=== PATIENT | male | born 1945 | race African-American/Black ===

== ENCOUNTER 2016-12-09 21:30 | Inpatient (IN) | payer MEDICARE, MEDICAID ==
[~2016-12-09] VITALS: Ht 177.8 cm; Wt 77.1 kg
[~2016-12-09 21:30] MED LIST: ALBU6.7H INH; ALLO100T PO; AMLO10TA80 PO; ASPI-1159 PO; LISI-604 PO; MOME13HF2 INH; SIMV10TA6 PO
[2016-12-09] MEDS ORDERED: METHYLPREDNISOLONE SOD SUCC 40 MG/ML VIAL IV ONE (21:45)
[2016-12-09 22:27] LABS: BG BASE EXCESS -5.2 mmol/L (-2.0-2.0); BG BILEVEL POS AIRWAY PRESSURE 15/5; BG CARBOXYHEMOGLOBIN 1.1 % (0.5-1.5); BG DEOXYHEMOGLOBIN 1.1 % (0.0-5.0); BG FRACTION INSPIRED OXYGEN 40; BG HCO3 ACT 20.7 mmol/L (22.0-26.0); BG METHEMOGLOBIN 0.1 % (0.0-1.5); BG OXYGEN SATURATION 98.9 % (92.0-98.5); BG OXYHEMOGLOBIN 97.7 % (94.0-97.0); BG PCO2 41.2 mmHg (35.0-45.0); BG PH 7.318 (7.350-7.450); BG PO2 162.6 mmHg (75.0-100.0); BG SAMPLE SITE RIGHT RADIAL; BG TOTAL HEMOGLOBIN 14.3 g/dL (12.0-18.0); BG VENT MODE MASK - BIPAP; BG VENT RATE 16 set
[2016-12-09 22:55] LABS: BASOPHILS % 0.4 % (0.0-2.0); EOSINOPHILS % 7.6 % (0.0-5.0); HEMOGLOBIN. 13.2 g/dL (14.0-18.0); LYMPHOCYTES % 19.2 % (20.0-50.0); MEAN CORPUSCULAR HEMOGLOBIN 32.5 pg (28.0-32.0); MEAN CORPUSCULAR VOLUME 96.6 fL (80.0-94.0); MEAN PLATELET VOLUME 8.2 fl (7.4-10.4); MONOCYTES % 11.8 % (2.0-8.0); PLATELET 229 x1000/uL (130-400); RED BLOOD CELL COUNT 4.04 mill/uL (4.7-6.1); RED CELL DISTRIBUTION WIDTH 12.1 % (11.6-14.6)
[2016-12-09 23:08] LABS: CARBON DIOXIDE 25 mEq/L (21-32); CHLORIDE 97 mEq/L (98-107)
[2016-12-10] MEDS ORDERED: CLONIDINE 0.1MG TABLET PO PRN (01:15)
[2016-12-10] MEDS ORDERED: IPRATROPIUM/ALBUTEROL 0.5-3(2.5)MG/3ML NEB INH PRN (01:15)
[2016-12-10] MEDS ORDERED: ACETAMINOPHEN 325MG TABLET PO PRN (01:15)
[2016-12-10] MEDS ORDERED: MAGNESIUM/ALUMINUM HYDROXIDE/SIMETHICONE 30ML UDC PO PRN (01:15)
[2016-12-10] MEDS ORDERED: DIPHENHYDRAMINE 50MG/ML VIAL IV PRN (01:15)
[2016-12-10] MEDS ORDERED: NA PHOS,M-B/NA PHOS,DI-BA ENEMA 118ML PR PRN (01:15)
[2016-12-10] MEDS ORDERED: ONDANSETRON HCL 4MG/2ML VIAL IV PRN (01:15)
[2016-12-10] MEDS ORDERED: LORAZEPAM 0.5MG TABLET PO PRN (01:15)
[2016-12-10] MEDS ORDERED: HYDROCODONE/ACETAMINOPHEN 5/325MG TABLET PO PRN (01:15)
[2016-12-10] MEDS ORDERED: HYDROMORPHONE HCL/PF 2MG/ML CPJ IV PRN (01:15)
[2016-12-10 01:21] LABS: CLARITY URINE CLEAR (CLEAR); COLOR URINE YELLOW (YELLOW); KETONES URINE 1+ (NEGATIVE); LEUKOCYTE ESTERASE URINE NEGATIVE (NEGATIVE); NITRITE URINE NEGATIVE (NEGATIVE); OCCULT BLOOD URINE TRACE (NEGATIVE); PROTEIN URINE 3+ (NEGATIVE); SPECIFIC GRAVITY URINE 1.017 (1.005-1.030); UROBILINOGEN URINE 0.2 E.U./dL (0.2-1.0)
[2016-12-10 01:35] LABS: *AMPHETAMINES SCREEN URINE NEGATIVE (NEGATIVE); *BARBITURATES SCREEN URINE NEGATIVE (NEGATIVE); *BENZODIAZEPINES SCREEN URINE PRESUMTIVE POSITIVE (NEGATIVE); *COCAINE SCREEN URINE NEGATIVE (NEGATIVE); CANNABINOID URINE SCREEN NEGATIVE (NEGATIVE); METHADONE URINE SCREEN NEGATIVE (NEGATIVE); OPIATES URINE SCREEN NEGATIVE (NEGATIVE); PHENCYCLIDINE URINE SCREEN NEGATIVE (NEGATIVE)
[2016-12-10] MEDS ORDERED: HYDROCODONE/ACETAMINOPHEN 5/325MG TABLET PO ONE (01:45)
[2016-12-10 02:53] LABS: CARBON DIOXIDE 24 mEq/L (21-32); CHLORIDE 97 mEq/L (98-107)
[2016-12-10] MEDS ORDERED: DEXTROSE 50% WATER 50ML SYRINGE IV PRN (04:15)
[2016-12-10] MEDS: METHYLPREDNISOLONE SOD SUCC 125 MG/2 ML VIAL IV SCH ×4 (05:54→23:31)
[2016-12-10] MEDS ORDERED: LEVOFLOXACIN 500MG PREMIX 100 ML IV SCH (06:00)
[2016-12-10] MEDS: BLOOD SUGAR DIAGNOSTIC STRIP TEST SCH ×4 (06:05→20:35)
[2016-12-10] MEDS: INSULIN LISPRO 100 UNITS/ML SUBCUT SCH ×4 (07:20→21:07)
[2016-12-10] MEDS: DOCUSATE SODIUM 100MG CAPSULE PO PRN (08:07)
[2016-12-10] MEDS: ENOXAPARIN 40MG/0.4ML SYR SUBCUT SCH (08:08)
[2016-12-10] MEDS ORDERED: ASPIRIN 81MG EC TABLET PO SCH (09:00)
[2016-12-10] MEDS ORDERED: REGADENOSON 0.4 MG/5 ML IV ONE (09:45)
[2016-12-10 12:24] LABS: TROPONIN I 0.42 ng/mL (0.00-0.04)
[2016-12-10] MEDS ORDERED: METO-385 PO (16:22)
[2016-12-10] MEDS ORDERED: ANORO ELLIPTA INH (16:23)
[2016-12-10] MEDS ORDERED: FAMO40TA7 PO (16:24)
[2016-12-10] MEDS ORDERED: IPRA0.2S51 NEB (16:32)
[2016-12-10] MEDS ORDERED: NON-FORMULARY INH (16:37)
[2016-12-10] MEDS ORDERED: METOPROLOL SUCCINATE PO SCH (16:45)
[2016-12-10] MEDS ORDERED: [UNRECOGNIZED DRUG - OTHER] INH PRN (16:45)
[2016-12-10 16:53] LABS: CREATINE KINASE MB FRACTION 10.8 ng/mL (0.5-3.6); TROPONIN I 0.39 ng/mL (0.00-0.04)
[2016-12-10] MEDS: IPRATROPIUM/ALBUTEROL 0.5-3(2.5)MG/3ML NEB HHN SCH ×2 (17:05→20:14)
[2016-12-10] MEDS: AMLODIPINE 10MG TABLET PO SCH (17:19)
[2016-12-10] MEDS: LISINOPRIL 20MG TABLET PO SCH (17:19)
[2016-12-10] MEDS ORDERED: MEDICATION NOT ON FORMULARY EA (Simvastatin 20 MG) PO SCH (21:00)
[2016-12-10] MEDS ORDERED: MEDICATION NOT ON FORMULARY EA (Famotidine 1 TAB) PO SCH (21:00)
[2016-12-10] MEDS: ATORVASTATIN CALCIUM 10MG TABLET PO SCH (21:09)
[2016-12-10] MEDS: GUAIFENESIN 200MG/10ML SUGAR FREE UDC PO PRN (21:09)
[2016-12-10] MEDS: METOPROLOL TARTRATE 25MG TABLET PO SCH (21:10)
[2016-12-10] MEDS: FAMOTIDINE 20MG TABLET PO SCH (21:10)
[2016-12-11] MEDS: IPRATROPIUM/ALBUTEROL 0.5-3(2.5)MG/3ML NEB HHN SCH ×6 (00:11→21:16)
[2016-12-11 00:36] LABS: CREATINE KINASE MB FRACTION 7.3 ng/mL (0.5-3.6)
[2016-12-11] MEDS: GUAIFENESIN 200MG/10ML SUGAR FREE UDC PO PRN (04:41)
[2016-12-11] MEDS: METHYLPREDNISOLONE SOD SUCC 125 MG/2 ML VIAL IV SCH (05:19)
[2016-12-11] MEDS: LEVOFLOXACIN 500MG PREMIX 100 ML IV SCH (05:23)
[2016-12-11] MEDS: BLOOD SUGAR DIAGNOSTIC STRIP TEST SCH ×4 (05:46→20:11)
[2016-12-11 06:40] LABS: HEMATOCRIT. 41.2 % (42.0-52.0); HEMOGLOBIN. 13.7 g/dL (14.0-18.0); MEAN CORPUSCULAR HEMOGLOBIN 32.1 pg (28.0-32.0); MEAN CORPUSCULAR VOLUME 96.5 fL (80.0-94.0); MEAN PLATELET VOLUME 8.2 fl (7.4-10.4); PLATELET 258 x1000/uL (130-400); RED BLOOD CELL COUNT 4.27 mill/uL (4.7-6.1); RED CELL DISTRIBUTION WIDTH 12.2 % (11.6-14.6)
[2016-12-11 07:08] LABS: CARBON DIOXIDE 23 mEq/L (21-32); CHLORIDE 98 mEq/L (98-107); CREATINE KINASE 152 IU/L (39-308); CREATINE KINASE MB FRACTION 6.3 ng/mL (0.5-3.6); HDL CHOLESTEROL 71 mg/dL (40-59); LDL CHOLESTEROL 60 mg/dL (5-100); T4 FREE 0.97 ng/dL (0.76-1.46)
[2016-12-11] MEDS: INSULIN LISPRO 100 UNITS/ML SUBCUT SCH ×4 (07:20→20:40)
[2016-12-11] MEDS ORDERED: REGADENOSON 0.4 MG/5 ML IV ONE (08:50)
[2016-12-11] MEDS ORDERED: ASPIRIN 81MG TABLET PO SCH (09:00)
[2016-12-11] MEDS ORDERED: ANORO ELLIPTA 62.5 MCG INH SCH (09:00)
[2016-12-11] MEDS: ALLOPURINOL 100 MG TABLET PO SCH (09:37)
[2016-12-11] MEDS: ENOXAPARIN 40MG/0.4ML SYR SUBCUT SCH (09:37)
[2016-12-11] MEDS: AMLODIPINE 10MG TABLET PO SCH (09:37)
[2016-12-11] MEDS: LISINOPRIL 20MG TABLET PO SCH (09:37)
[2016-12-11] MEDS: METOPROLOL TARTRATE 25MG TABLET PO SCH ×2 (09:37→20:13)
[2016-12-11 10:58] LABS: PLATELET ESTIMATE NORMAL
[2016-12-11] MEDS: METHYLPREDNISOLONE SOD SUCC 40 MG/ML VIAL IV SCH ×2 (13:46→23:26)
[2016-12-11] MEDS: ATORVASTATIN CALCIUM 10MG TABLET PO SCH (20:13)
[2016-12-11] MEDS: FAMOTIDINE 20MG TABLET PO SCH (20:13)
[2016-12-12] MEDS: IPRATROPIUM/ALBUTEROL 0.5-3(2.5)MG/3ML NEB HHN SCH ×4 (00:53→12:20)
[2016-12-12] MEDS: GUAIFENESIN 200MG/10ML SUGAR FREE UDC PO PRN (04:55)
[2016-12-12] MEDS: METHYLPREDNISOLONE SOD SUCC 40 MG/ML VIAL IV SCH (05:08)
[2016-12-12] MEDS: LEVOFLOXACIN 500MG PREMIX 100 ML IV SCH (05:09)
[2016-12-12 06:39] LABS: HEMOGLOBIN. 13.6 g/dL (14.0-18.0); MEAN CORPUSCULAR HEMOGLOBIN 32.4 pg (28.0-32.0); MEAN CORPUSCULAR VOLUME 95.2 fL (80.0-94.0); MEAN PLATELET VOLUME 7.9 fl (7.4-10.4); PLATELET 247 x1000/uL (130-400); RED CELL DISTRIBUTION WIDTH 12.1 % (11.6-14.6)
[2016-12-12] MEDS: BLOOD SUGAR DIAGNOSTIC STRIP TEST SCH ×2 (06:50→11:50)
[2016-12-12 07:34] LABS: CHLORIDE 100 mEq/L (98-107)
[2016-12-12 07:39] LABS: CARBON DIOXIDE 23 mEq/L (21-32)
[2016-12-12] MEDS: INSULIN LISPRO 100 UNITS/ML SUBCUT SCH ×2 (07:42→12:20)
[2016-12-12] MEDS: DOCUSATE SODIUM 100MG CAPSULE PO PRN (07:43)
[2016-12-12] MEDS: ALLOPURINOL 100 MG TABLET PO SCH (07:43)
[2016-12-12] MEDS: LISINOPRIL 20MG TABLET PO SCH (07:45)
[2016-12-12] MEDS: METOPROLOL TARTRATE 25MG TABLET PO SCH (07:46)
[2016-12-12] MEDS: AMLODIPINE 10MG TABLET PO SCH (07:46)
[2016-12-12] MEDS: ENOXAPARIN 40MG/0.4ML SYR SUBCUT SCH (07:47)
[2016-12-12 12:03] VITALS: BP 131/69
[2016-12-12 12:56] LABS: PLATELET ESTIMATE NORMAL
== END 2016-12-12 12:45 | disposition home or self-care (01) | DRG 177 ==
LOC: ER 22:31 → 3WST 12-10 01:04 → EDBEDREQ 12-10 01:11 → EDBEDREQSVC 12-10 01:11 → ENRESERV 12-10 02:08
PROVIDERS: ADMIT Internal Medicine; ATTEND Internal Medicine
PROC: 5A09357 Assistance with Respiratory Ventilation, Less than 24 Consecutive Hours, Continuous Positive Airway Pressure (ICD-10-PCS; principal; 2016-12-10)
DX: J69.0 Pneumonitis due to inhalation of food and vomit (principal); J96.01 Acute respiratory failure with hypoxia; J44.0 Chronic obstructive pulmonary disease with (acute) lower respiratory infection; J44.1 Chronic obstructive pulmonary disease with (acute) exacerbation; I11.0 Hypertensive heart disease with heart failure; E11.51 Type 2 diabetes mellitus with diabetic peripheral angiopathy without gangrene; I50.9 Heart failure, unspecified; E78.5 Hyperlipidemia, unspecified; F10.10 Alcohol abuse, uncomplicated; F17.210 Nicotine dependence, cigarettes, uncomplicated; I25.10 Atherosclerotic heart disease of native coronary artery without angina pectoris; M10.9 Gout, unspecified; Z79.899 Other long term (current) drug therapy; Z82.49 Family history of ischemic heart disease and other diseases of the circulatory system; Z83.3 Family history of diabetes mellitus; Z91.018 Allergy to other foods; Z79.82 Long term (current) use of aspirin
CPT/HCPCS: 36415; 36600; 71010; 78452; 78582; 80048; 80053; 80061; 80305; 81001; 82375; 82550; 82553; 82805; 82962; 83036; 83880; 84439; 84443; 84481; 84484; 85025; 85379; 87040; 93005; 93017; 93306; 93923; 93970; 94640; 96374; 96375; 96376; 97162; 99285; A9500; A9558; J1650; J1815; J1956; J2785; J2920; J2930; J7050; J7620

== ENCOUNTER 2017-08-07 06:11 | Inpatient (IN) | payer MEDICARE, MEDICAID ==
[~2017-08-07] VITALS: Ht 177.8 cm; Wt 74.4 kg
[~2017-08-07 06:11] MED LIST changes: +ANORO ELLIPTA INH; +FAMO40TA7 PO; +METO-385 PO; +NON-FORMULARY INH
[2017-08-07] MEDS ORDERED: IPRATROPIUM BROMIDE (0.02%) 0.5MG/2.5ML NEB HHN STA (06:56)
[2017-08-07] MEDS ORDERED: METHYLPREDNISOLONE SOD SUCC 125 MG/2 ML VIAL IV STA (06:56)
[2017-08-07] MEDS ORDERED: ALBUTEROL (0.083%) 2.5MG/3ML NEB HHN STA (06:56)
[2017-08-07] MEDS ORDERED: AZITHROMYCIN 500 MG in DEXT 5% WATER 250 ML IV ONE (07:00)
[2017-08-07 07:41] LABS: BASOPHILS % 0.5 % (0.0-2.0); EOSINOPHILS % 6.5 % (0.0-5.0); HEMATOCRIT. 48.5 % (42.0-52.0); HEMOGLOBIN. 16.5 g/dL (14.0-18.0); LYMPHOCYTES % 23.5 % (20.0-50.0); MEAN CORPUSCULAR HEMOGLOBIN 34.3 pg (28.0-32.0); MEAN CORPUSCULAR VOLUME 101.2 fL (80.0-94.0); MEAN PLATELET VOLUME 7.7 fl (7.4-10.4); MONOCYTES % 9.1 % (2.0-8.0); NEUTROPHILS % 60.4 % (40.0-76.0); PLATELET 235 x1000/uL (130-400); RED CELL DISTRIBUTION WIDTH 12.6 % (11.6-14.6)
[2017-08-07 07:47] LABS: CHLORIDE 98 mEq/L (98-107)
[2017-08-07 07:48] LABS: PROTHROMBIN TIME 10.7 sec (9.4-11.6)
[2017-08-07 13:15] VITALS: BP 160/86
[2017-08-07] MEDS ORDERED: MAGNESIUM HYDROXIDE 400MG/5ML 30ML UDC PO PRN (13:30)
[2017-08-07] MEDS ORDERED: GUAIFENESIN 200MG/10ML SUGAR FREE UDC PO PRN (13:30)
[2017-08-07] MEDS ORDERED: DIPHENHYDRAMINE 50MG/ML VIAL IV PRN (13:30)
[2017-08-07] MEDS ORDERED: ACETAMINOPHEN 325MG TABLET PO PRN (13:30)
[2017-08-07] MEDS ORDERED: CLONIDINE 0.1MG TABLET PO PRN (13:30)
[2017-08-07] MEDS ORDERED: IPRATROPIUM/ALBUTEROL 0.5-3(2.5)MG/3ML NEB INH PRN (13:30)
[2017-08-07] MEDS ORDERED: MAGNESIUM/ALUMINUM HYDROXIDE/SIMETHICONE 30ML UDC PO PRN (13:30)
[2017-08-07] MEDS ORDERED: ONDANSETRON HCL 4MG/2ML VIAL IV PRN (13:30)
[2017-08-07] MEDS: METHYLPREDNISOLONE SOD SUCC 125 MG/2 ML VIAL IV SCH ×2 (15:01→21:18)
[2017-08-07] MEDS: ENOXAPARIN 40MG/0.4ML SYR SUBCUT SCH (15:02)
[2017-08-07] MEDS: SODIUM CHLORIDE 0.9% INJ 3ML FLUSH IVF SCH ×2 (15:03→21:18)
[2017-08-07 16:31] LABS: BG BASE EXCESS -3.3 mmol/L (-2.0-2.0); BG CARBOXYHEMOGLOBIN 1.1 % (0.5-1.5); BG DEOXYHEMOGLOBIN 4.8 % (0.0-5.0); BG FRACTION INSPIRED OXYGEN 28; BG HCO3 ACT 20.4 mmol/L (22.0-26.0); BG METHEMOGLOBIN 0.3 % (0.0-1.5); BG OXYGEN SATURATION 95.1 % (92.0-98.5); BG OXYHEMOGLOBIN 93.8 % (94.0-97.0); BG PCO2 33.6 mmHg (35.0-45.0); BG PH 7.401 (7.350-7.450); BG PO2 77.9 mmHg (75.0-100.0); BG SAMPLE SITE RIGHT RADIAL; BG TOTAL HEMOGLOBIN 17.2 g/dL (12.0-18.0); BG VENT MODE NASAL CANNULA
[2017-08-07] MEDS: IPRATROPIUM/ALBUTEROL 0.5-3(2.5)MG/3ML NEB HHN SCH ×2 (16:51→20:42)
[2017-08-07 20:00] VITALS: BP 120/70
[2017-08-07] MEDS: ATORVASTATIN CALCIUM 20MG TABLET PO SCH (20:35)
[2017-08-07] MEDS: METOPROLOL TARTRATE 25MG TABLET PO SCH (20:36)
[2017-08-07] MEDS: FAMOTIDINE 20MG TABLET PO SCH (20:36)
[2017-08-07] MEDS: HYDROCODONE/ACETAMINOPHEN 5/325MG TABLET PO PRN (20:37)
[2017-08-07] MEDS ORDERED: TEMAZEPAM 15MG CAPSULE PO PRN (21:00)
[2017-08-07] MEDS ORDERED: OMEPRAZOLE 20MG CAPSULE EXTENDED RELEASE PO SCH (21:00)
[2017-08-08] VITALS: BP 128/71
[2017-08-08] MEDS: IPRATROPIUM/ALBUTEROL 0.5-3(2.5)MG/3ML NEB HHN SCH ×6 (00:25→22:35)
[2017-08-08 04:00] VITALS: BP 112/51
[2017-08-08] MEDS: SODIUM CHLORIDE 0.9% INJ 3ML FLUSH IVF SCH ×3 (05:01→21:05)
[2017-08-08] MEDS: METHYLPREDNISOLONE SOD SUCC 125 MG/2 ML VIAL IV SCH ×3 (05:01→21:05)
[2017-08-08 08:00] VITALS: BP 119/53
[2017-08-08] MEDS: METOPROLOL TARTRATE 25MG TABLET PO SCH ×2 (09:02→20:33)
[2017-08-08] MEDS: ASPIRIN 81MG EC TABLET PO SCH (09:02)
[2017-08-08] MEDS: ALLOPURINOL 100 MG TABLET PO SCH (09:03)
[2017-08-08] MEDS: AMLODIPINE 10MG TABLET PO SCH (09:03)
[2017-08-08] MEDS: LISINOPRIL 20MG TABLET PO SCH (09:04)
[2017-08-08] MEDS: NICOTINE 21MG PATCH TD SCH (09:05)
[2017-08-08 12:00] VITALS: BP 122/60
[2017-08-08] MEDS: ENOXAPARIN 40MG/0.4ML SYR SUBCUT SCH (15:31)
[2017-08-08 16:00] VITALS: BP 127/60
[2017-08-08] MEDS: HYDROCODONE/ACETAMINOPHEN 5/325MG TABLET PO PRN ×2 (16:25→20:34)
[2017-08-08 20:00] VITALS: BP 155/70
[2017-08-08] MEDS: ATORVASTATIN CALCIUM 20MG TABLET PO SCH (20:33)
[2017-08-08] MEDS: FAMOTIDINE 20MG TABLET PO SCH (20:33)
[2017-08-09] VITALS: BP 140/68
[2017-08-09] MEDS: IPRATROPIUM/ALBUTEROL 0.5-3(2.5)MG/3ML NEB HHN SCH ×6 (01:21→21:09)
[2017-08-09 04:00] VITALS: BP 150/70
[2017-08-09] MEDS: METHYLPREDNISOLONE SOD SUCC 125 MG/2 ML VIAL IV SCH ×2 (06:22→13:53)
[2017-08-09] MEDS: SODIUM CHLORIDE 0.9% INJ 3ML FLUSH IVF SCH ×3 (06:23→20:51)
[2017-08-09 07:42] VITALS: BP 164/79
[2017-08-09] MEDS: ASPIRIN 81MG EC TABLET PO SCH (08:53)
[2017-08-09] MEDS: LISINOPRIL 20MG TABLET PO SCH (08:54)
[2017-08-09] MEDS: ALLOPURINOL 100 MG TABLET PO SCH (08:55)
[2017-08-09] MEDS: METOPROLOL TARTRATE 25MG TABLET PO SCH ×2 (08:55→20:43)
[2017-08-09] MEDS: AMLODIPINE 10MG TABLET PO SCH (08:55)
[2017-08-09] MEDS: NICOTINE 21MG PATCH TD SCH (10:49)
[2017-08-09 11:30] VITALS: BP 146/65
[2017-08-09] MEDS: HYDRALAZINE HCL 50MG TABLET PO SCH ×2 (13:53→21:36)
[2017-08-09] MEDS: ENOXAPARIN 40MG/0.4ML SYR SUBCUT SCH (14:00)
[2017-08-09 15:56] VITALS: BP 148/96
[2017-08-09] MEDS ORDERED: LORAZEPAM 2MG/ML CPJ IV PRN (15:57)
[2017-08-09] MEDS ORDERED: THIAMINE HCL 100MG TABLET PO NR (15:58)
[2017-08-09 16:26] LABS: HEPATITIS B SURFACE ANTIGEN NEGATIVE
[2017-08-09 16:54] LABS: HEPATITIS B CORE AB IGM NEGATIVE
[2017-08-09 16:56] LABS: HEPATITIS A AB IGM NEGATIVE (NEGATIVE)
[2017-08-09] MEDS: CEFEPIME 2,000 MG in DEXT 5% WATER 100 ML IV SCH (18:36)
[2017-08-09] MEDS: METRONIDAZOLE 500 MG PREMIX 100 ML IV SCH (19:37)
[2017-08-09 20:00] VITALS: BP 146/72
[2017-08-09] MEDS: METHYLPREDNISOLONE SOD SUCC 40 MG/ML VIAL IV SCH (20:43)
[2017-08-09] MEDS: FAMOTIDINE 20MG TABLET PO SCH (20:43)
[2017-08-09] MEDS: ATORVASTATIN CALCIUM 20MG TABLET PO SCH (20:43)
[2017-08-09] MEDS ORDERED: GUAIFENESIN 600MG ER TABLET PO SCH (21:00)
[2017-08-09] MEDS: CHLORDIAZEPOXIDE 5 MG CAPSULE PO SCH (21:36)
[2017-08-09] MEDS: GUAIFENESIN 600MG ER TABLET PO SCH (21:37)
[2017-08-10] VITALS: BP 115/68
[2017-08-10] MEDS: IPRATROPIUM/ALBUTEROL 0.5-3(2.5)MG/3ML NEB HHN SCH ×5 (00:33→16:28)
[2017-08-10] MEDS: METRONIDAZOLE 500 MG PREMIX 100 ML IV SCH ×2 (01:53→09:59)
[2017-08-10] MEDS: METHYLPREDNISOLONE SOD SUCC 40 MG/ML VIAL IV SCH ×2 (03:46→12:55)
[2017-08-10 04:00] VITALS: BP 134/61
[2017-08-10] MEDS: CEFEPIME 2,000 MG in DEXT 5% WATER 100 ML IV SCH (05:01)
[2017-08-10] MEDS: SODIUM CHLORIDE 0.9% INJ 3ML FLUSH IVF SCH ×2 (05:01→14:43)
[2017-08-10] MEDS: HYDRALAZINE HCL 50MG TABLET PO SCH ×2 (05:02→14:42)
[2017-08-10] MEDS: CHLORDIAZEPOXIDE 5 MG CAPSULE PO SCH ×2 (05:02→14:43)
[2017-08-10 06:00] LABS: HEMATOCRIT. 45.8 % (42.0-52.0); HEMOGLOBIN. 15.4 g/dL (14.0-18.0); MEAN CORPUSCULAR HEMOGLOBIN 33.6 pg (28.0-32.0); MEAN PLATELET VOLUME 8.1 fl (7.4-10.4); PLATELET 227 x1000/uL (130-400); RED BLOOD CELL COUNT 4.58 mill/uL (4.7-6.1); RED CELL DISTRIBUTION WIDTH 12.3 % (11.6-14.6)
[2017-08-10 06:50] LABS: CHLORIDE 100 mEq/L (98-107)
[2017-08-10 07:47] VITALS: BP 139/53
[2017-08-10] MEDS: METOPROLOL TARTRATE 25MG TABLET PO SCH (08:36)
[2017-08-10] MEDS: AMLODIPINE 10MG TABLET PO SCH (08:37)
[2017-08-10] MEDS: GUAIFENESIN 600MG ER TABLET PO SCH (08:37)
[2017-08-10] MEDS: ALLOPURINOL 100 MG TABLET PO SCH (08:37)
[2017-08-10] MEDS: ASPIRIN 81MG EC TABLET PO SCH (08:37)
[2017-08-10] MEDS: LISINOPRIL 20MG TABLET PO SCH (08:37)
[2017-08-10] MEDS: NICOTINE 21MG PATCH TD SCH (08:40)
[2017-08-10] MEDS ORDERED: THIAMINE HCL 100MG TABLET PO SCH (09:00)
[2017-08-10] MEDS ORDERED: FOLIC ACID 1MG TABLET PO SCH (09:00)
[2017-08-10] MEDS ORDERED: MULTIVITAMINS,THER W-MINERALS TABLET PO SCH (09:00)
[2017-08-10 11:40] VITALS: BP 131/41
[2017-08-10] MEDS: ENOXAPARIN 40MG/0.4ML SYR SUBCUT SCH (14:43)
[2017-08-10 16:02] VITALS: BP 149/80
[2017-08-10 16:42] VITALS: BP 129/76
[2017-08-10 18:02] LABS: PLATELET ESTIMATE NORMAL
[2017-08-11] MEDS ORDERED: PREDNISONE 20MG TABLET PO SCH (09:00)
== END 2017-08-10 18:05 | disposition home or self-care (01) | DRG 193 ==
LOC: ER 06:11 → 5WST 07:02 → EDBEDREQ 07:03 → EDBEDREQSVC 11:40 → ENRESERV 12:25
PROVIDERS: ADMIT Internal Medicine; ATTEND Internal Medicine
DX: J18.9 Pneumonia, unspecified organism (principal); J96.01 Acute respiratory failure with hypoxia; E43 Unspecified severe protein-calorie malnutrition; I42.9 Cardiomyopathy, unspecified; R18.8 Other ascites; I11.0 Hypertensive heart disease with heart failure; I50.32 Chronic diastolic (congestive) heart failure; J44.0 Chronic obstructive pulmonary disease with (acute) lower respiratory infection; J44.1 Chronic obstructive pulmonary disease with (acute) exacerbation; M10.9 Gout, unspecified; I73.9 Peripheral vascular disease, unspecified; E78.00 Pure hypercholesterolemia, unspecified; D64.9 Anemia, unspecified; R62.7 Adult failure to thrive; E78.5 Hyperlipidemia, unspecified; D49.0 Neoplasm of unspecified behavior of digestive system; F17.210 Nicotine dependence, cigarettes, uncomplicated; Z79.899 Other long term (current) drug therapy; Z79.82 Long term (current) use of aspirin; Z83.3 Family history of diabetes mellitus; Z82.49 Family history of ischemic heart disease and other diseases of the circulatory system; Z68.23 Body mass index [BMI] 23.0-23.9, adult
CPT/HCPCS: 36415; 36600; 71045; 80048; 80053; 82375; 82805; 83605; 83690; 83880; 84484; 85025; 85610; 86705; 86709; 86803; 87340; 87804; 93005; 94640; 94660; 96365; 96375; 99285; J0456; J0692; J1200; J1650; J2060; J2920; J2930; J3490; J7040; J7060; J7611; J7620

== ENCOUNTER 2019-07-06 15:02 | Emergency (ER) | payer MEDICARE, MEDICAID ==
[~2019-07-06] VITALS: Ht 172.7 cm; Wt 81.0 kg
[~2019-07-06 15:02] MED LIST changes: -ALBU6.7H INH; +ALBU6.7H11 INH; -ASPI-1159 PO; +ASPI-1497 PO; +DIPH25CA83 MT; -SIMV10TA6 PO; +SIMV10TA97 PO
[2019-07-06 15:52] LABS: CHLORIDE 104 mEq/L (98-107)
[2019-07-06 15:59] LABS: BASOPHILS % 0.5 % (0.0-2.0); EOSINOPHILS % 7.3 % (0.0-5.0); HEMATOCRIT. 36.8 % (42.0-52.0); HEMOGLOBIN. 12.5 g/dL (14.0-18.0); LYMPHOCYTES % 8.4 % (20.0-50.0); MEAN CORPUSCULAR HEMOGLOBIN 33.2 pg (28.0-32.0); MEAN CORPUSCULAR VOLUME 97.9 fL (80.0-94.0); MEAN PLATELET VOLUME 7.8 fl (7.4-10.4); MONOCYTES % 6.6 % (2.0-8.0); NEUTROPHILS % 77.2 % (40.0-76.0); PLATELET 216 x1000/uL (130-400); RED BLOOD CELL COUNT 3.76 mill/uL (4.7-6.1); RED CELL DISTRIBUTION WIDTH 12.5 % (11.6-14.6)
[2019-07-06] MEDS ORDERED: ALBUTEROL (0.083%) 2.5MG/3ML NEB HHN STA (16:19)
[2019-07-06] MEDS ORDERED: IPRATROPIUM BROMIDE (0.02%) 0.5MG/2.5ML NEB HHN STA (16:19)
[2019-07-06 18:46] VITALS: BP 176/70
== END 2019-07-06 18:48 | disposition home or self-care (01) ==
LOC: ER 15:02 → CANBEDREQ 19:38
DX: J44.1 Chronic obstructive pulmonary disease with (acute) exacerbation (principal); M10.9 Gout, unspecified; I10 Essential (primary) hypertension; Z91.018 Allergy to other foods; Z87.19 Personal history of other diseases of the digestive system
CPT/HCPCS: 36415; 71045; 80053; 83880; 84484; 85025; 87804; 93005; 94640; 99285

== ENCOUNTER 2019-07-09 04:48 | Emergency (ER) | payer MEDICARE, MEDICAID ==
[~2019-07-09] VITALS: Ht 172.7 cm; Wt 68.0 kg
[2019-07-09] MEDS ORDERED: METHYLPREDNISOLONE SOD SUCC 125 MG/2 ML VIAL IV STA (05:46)
[2019-07-09] MEDS ORDERED: LEVOFLOXACIN 500MG PREMIX 100 ML IV ONE (06:00)
[2019-07-09] MEDS ORDERED: IPRATROPIUM/ALBUTEROL 0.5-3(2.5)MG/3ML NEB HHN ONE (06:00)
[2019-07-09 06:07] LABS: BASOPHILS % 0.7 % (0.0-2.0); CHLORIDE 105 mEq/L (98-107); HEMATOCRIT. 35.6 % (42.0-52.0); HEMOGLOBIN. 12.2 g/dL (14.0-18.0); LYMPHOCYTES % 8.3 % (20.0-50.0); MEAN CORPUSCULAR HEMOGLOBIN 33.7 pg (28.0-32.0); MEAN CORPUSCULAR VOLUME 98.1 fL (80.0-94.0); MEAN PLATELET VOLUME 8.4 fl (7.4-10.4); MONOCYTES % 7.2 % (2.0-8.0); NEUTROPHILS % 70.8 % (40.0-76.0); PLATELET 257 x1000/uL (130-400); RED BLOOD CELL COUNT 3.63 mill/uL (4.7-6.1); RED CELL DISTRIBUTION WIDTH 12.8 % (11.6-14.6)
[2019-07-09 06:10] LABS: ETHANOL BLOOD < 10 mg/dL
[2019-07-09] MEDS ORDERED: MAGNESIUM 2 G PREMIX 50 ML IV ONE (06:30)
[2019-07-09 06:38] LABS: BG BASE EXCESS -2.4 mmol/L (-2.0-2.0); BG CARBOXYHEMOGLOBIN 0.2 % (0.5-1.5); BG DEOXYHEMOGLOBIN 2.8 % (0.0-5.0); BG FRACTION INSPIRED OXYGEN 30; BG METHEMOGLOBIN 0.2 % (0.0-1.5); BG OXYGEN SATURATION 97.2 % (92.0-98.5); BG OXYHEMOGLOBIN 96.8 % (94.0-97.0); BG PH 7.356 (7.350-7.450); BG PO2 98.5 mmHg (75.0-100.0); BG SAMPLE SITE RIGHT RADIAL; BG TOTAL HEMOGLOBIN 12.3 g/dL (12.0-18.0); BG VENT MODE NASAL CANNULA
[2019-07-09 06:53] LABS: CLARITY URINE CLEAR (CLEAR); COLOR URINE YELLOW (YELLOW); KETONES URINE NEGATIVE (NEGATIVE); LEUKOCYTE ESTERASE URINE NEGATIVE (NEGATIVE); NITRITE URINE NEGATIVE (NEGATIVE); OCCULT BLOOD URINE NEGATIVE (NEGATIVE); PROTEIN URINE 1+ (NEGATIVE); UROBILINOGEN URINE 0.2 E.U./dL (0.2-1.0)
[2019-07-09 07:09] LABS: *AMPHETAMINES SCREEN URINE NEGATIVE (NEGATIVE); *BARBITURATES SCREEN URINE NEGATIVE (NEGATIVE); *BENZODIAZEPINES SCREEN URINE NEGATIVE (NEGATIVE)
[2019-07-09 07:10] LABS: *COCAINE SCREEN URINE NEGATIVE (NEGATIVE); METHADONE URINE SCREEN NEGATIVE (NEGATIVE); OPIATES URINE SCREEN NEGATIVE (NEGATIVE); PHENCYCLIDINE URINE SCREEN NEGATIVE (NEGATIVE)
[2019-07-09 07:14] LABS: CANNABINOID URINE SCREEN NEGATIVE (NEGATIVE)
[2019-07-09 09:29] VITALS: BP 121/66
== END 2019-07-09 10:00 | disposition short-term general hospital (02) ==
LOC: ER 04:48 → CANBEDREQ 14:17
DX: J44.1 Chronic obstructive pulmonary disease with (acute) exacerbation (principal); I10 Essential (primary) hypertension; E87.8 Other disorders of electrolyte and fluid balance, not elsewhere classified; E11.9 Type 2 diabetes mellitus without complications; Z79.899 Other long term (current) drug therapy
CPT/HCPCS: 36415; 36600; 71045; 80053; 80305; 80320; 81003; 82375; 82805; 83605; 83880; 84484; 85025; 87040; 87086; 87804; 93005; 94640; 96365; 96367; 96375; 99291; J1956; J2930; J3475; G0480

== ENCOUNTER 2019-07-24 14:40 | Inpatient (IN) | payer MEDICARE, MEDICAID ==
[~2019-07-24] VITALS: Ht 177.8 cm; Wt 80.7 kg
[2019-07-24 18:53] LABS: BASOPHILS % 0.2 % (0.0-2.0); EOSINOPHILS % 0.8 % (0.0-5.0); HEMATOCRIT. 39.8 % (42.0-52.0); HEMOGLOBIN. 13.2 g/dL (14.0-18.0); LYMPHOCYTES % 11.7 % (20.0-50.0); MEAN CORPUSCULAR HEMOGLOBIN 33.1 pg (28.0-32.0); MEAN CORPUSCULAR VOLUME 99.6 fL (80.0-94.0); MEAN PLATELET VOLUME 8.1 fl (7.4-10.4); MONOCYTES % 6.3 % (2.0-8.0); PLATELET 225 x1000/uL (130-400); RED CELL DISTRIBUTION WIDTH 13.6 % (11.6-14.6)
[2019-07-24 19:00] LABS: CHLORIDE 104 mEq/L (98-107)
[2019-07-24] MEDS ORDERED: HYDROCODONE/ACETAMINOPHEN 5/325MG TABLET PO ONE (21:15)
[2019-07-24] MEDS ORDERED: FUROSEMIDE 20MG/2ML VIAL IVP ONE (21:15)
[2019-07-24] MEDS ORDERED: ASPIRIN 325MG TABLET PO ONE (22:15)
[2019-07-24 23:57] VITALS: BP 119/67
[2019-07-25] MEDS ORDERED: DIPHENHYDRAMINE 25MG CAPSULE PO PRN (03:45)
[2019-07-25 04:52] VITALS: BP 127/76
[2019-07-25] MEDS: IPRATROPIUM/ALBUTEROL 0.5-3(2.5)MG/3ML NEB HHN PRN ×5 (05:52→20:16)
[2019-07-25 08:00] VITALS: BP 124/53
[2019-07-25] MEDS ORDERED: CARVEDILOL 3.125 MG TABLET PO SCH (09:00)
[2019-07-25] MEDS: ALLOPURINOL 100 MG TABLET PO SCH (09:13)
[2019-07-25] MEDS: AMLODIPINE 10MG TABLET PO SCH (09:14)
[2019-07-25] MEDS: FUROSEMIDE 40MG/4ML VIAL IVP SCH (10:15)
[2019-07-25] MEDS ORDERED: MORPHINE SULFATE 4 MG/ML CPJ (NOT FOR IM USE) IV PRN (10:30)
[2019-07-25 12:00] VITALS: BP 90/58
[2019-07-25 16:00] VITALS: BP 148/73
[2019-07-25] MEDS ORDERED: DEXTROSE 50% WATER 50ML SYRINGE IV PRN (16:30)
[2019-07-25] MEDS: BLOOD SUGAR DIAGNOSTIC STRIP TEST SCH ×2 (16:55→21:29)
[2019-07-25] MEDS: INSULIN LISPRO 100 UNITS/ML SUBCUT SCH ×2 (16:56→21:00)
[2019-07-25 20:26] VITALS: BP 127/65
[2019-07-25] MEDS: ENOXAPARIN 40MG/0.4ML SYR SUBCUT SCH (21:28)
[2019-07-25] MEDS: FAMOTIDINE 20MG TABLET PO SCH (21:29)
[2019-07-25] MEDS: ATORVASTATIN CALCIUM 20MG TABLET PO SCH (21:29)
[2019-07-25 22:51] LABS: CLARITY URINE CLEAR (CLEAR); COLOR URINE YELLOW (YELLOW); KETONES URINE NEGATIVE (NEGATIVE); LEUKOCYTE ESTERASE URINE NEGATIVE (NEGATIVE); NITRITE URINE NEGATIVE (NEGATIVE); OCCULT BLOOD URINE NEGATIVE (NEGATIVE); PH URINE 7.5 (4.5-8.0); PROTEIN URINE NEGATIVE (NEGATIVE); SPECIFIC GRAVITY URINE 1.007 (1.005-1.030); UROBILINOGEN URINE 0.2 E.U./dL (0.2-1.0)
[2019-07-26] VITALS (8 sets, daily range): BP systolic 127–156; BP diastolic 57–80
[2019-07-26] MEDS: IPRATROPIUM/ALBUTEROL 0.5-3(2.5)MG/3ML NEB HHN PRN ×2 (04:14→22:10)
[2019-07-26 06:02] LABS: CHLORIDE 101 mEq/L (98-107)
[2019-07-26] MEDS: BLOOD SUGAR DIAGNOSTIC STRIP TEST SCH ×4 (06:57→20:36)
[2019-07-26] MEDS: INSULIN LISPRO 100 UNITS/ML SUBCUT SCH ×4 (07:31→20:36)
[2019-07-26] MEDS: ALLOPURINOL 100 MG TABLET PO SCH (08:20)
[2019-07-26] MEDS: AMLODIPINE 10MG TABLET PO SCH (08:20)
[2019-07-26] MEDS: FUROSEMIDE 40MG/4ML VIAL IVP SCH (08:20)
[2019-07-26] MEDS: HYDROCODONE/ACETAMINOPHEN 10/325MG TABLET PO PRN ×2 (10:24→20:38)
[2019-07-26] MEDS ORDERED: FURO-152 MT (16:37)
[2019-07-26] MEDS: ENOXAPARIN 40MG/0.4ML SYR SUBCUT SCH (20:33)
[2019-07-26] MEDS: ATORVASTATIN CALCIUM 20MG TABLET PO SCH (20:34)
[2019-07-26] MEDS: FAMOTIDINE 20MG TABLET PO SCH (20:34)
[2019-07-27] VITALS: BP 126/61
[2019-07-27 04:00] VITALS: BP 124/64
[2019-07-27] MEDS: BLOOD SUGAR DIAGNOSTIC STRIP TEST SCH ×2 (06:54→12:10)
[2019-07-27] MEDS: INSULIN LISPRO 100 UNITS/ML SUBCUT SCH ×2 (06:54→12:34)
[2019-07-27 07:41] VITALS: BP 101/62
[2019-07-27 08:00] VITALS: BP_SYST 137; BP_SYST 144; BP_DIAS 63; BP_DIAS 74
[2019-07-27] MEDS: AMLODIPINE 10MG TABLET PO SCH (08:07)
[2019-07-27] MEDS: FUROSEMIDE 40MG/4ML VIAL IVP SCH (08:07)
[2019-07-27] MEDS: ALLOPURINOL 100 MG TABLET PO SCH (08:07)
[2019-07-27] MEDS: IPRATROPIUM/ALBUTEROL 0.5-3(2.5)MG/3ML NEB HHN PRN (10:25)
[2019-07-27 11:30] VITALS: BP 150/83
[2019-07-27] MEDS ORDERED: MECLIZINE 25MG TABLET PO PRN (12:30)
[2019-07-27 12:40] VITALS: BP 115/63
[2019-07-27 15:04] LABS: BASOPHILS % 0.7 % (0.0-2.0); EOSINOPHILS % 5.5 % (0.0-5.0); HEMATOCRIT. 40.6 % (42.0-52.0); HEMOGLOBIN. 13.4 g/dL (14.0-18.0); LYMPHOCYTES % 20.4 % (20.0-50.0); MEAN CORPUSCULAR HEMOGLOBIN 32.5 pg (28.0-32.0); MEAN CORPUSCULAR VOLUME 98.5 fL (80.0-94.0); MEAN PLATELET VOLUME 7.9 fl (7.4-10.4); MONOCYTES % 10.3 % (2.0-8.0); NEUTROPHILS % 63.1 % (40.0-76.0); PLATELET 222 x1000/uL (130-400); RED BLOOD CELL COUNT 4.12 mill/uL (4.7-6.1)
[2019-07-27 15:10] LABS: CHLORIDE 99 mEq/L (98-107)
== END 2019-07-27 15:15 | disposition home or self-care (01) | DRG 293 ==
LOC: ER 14:40 → 6WST 21:13 → EDBEDREQ 21:20 → ENRESERV 22:56 → 6WST 07-26 21:43 → 5WST 07-27 11:26
PROVIDERS: ADMIT Internal Medicine; ATTEND Internal Medicine
DX: I11.0 Hypertensive heart disease with heart failure (principal); I50.33 Acute on chronic diastolic (congestive) heart failure; J44.9 Chronic obstructive pulmonary disease, unspecified; E11.9 Type 2 diabetes mellitus without complications; D64.9 Anemia, unspecified; Z91.02 Food additives allergy status; Z79.82 Long term (current) use of aspirin; Z79.899 Other long term (current) drug therapy; Z79.84 Long term (current) use of oral hypoglycemic drugs
CPT/HCPCS: 36415; 71045; 80048; 80053; 81003; 82962; 83036; 83880; 84484; 85025; 85379; 93005; 93306; 93970; 94640; 97162; 99285; J1650; J1815; J1940; J2270

== ENCOUNTER 2019-10-25 16:51 | Emergency (ER) | payer MEDICAID, MEDICARE ==
[~2019-10-25] VITALS: Ht 172.7 cm; Wt 75.0 kg
[~2019-10-25 16:51] MED LIST changes: -ALBU6.7H11 INH; -ASPI-1497 PO; +FURO-152 MT
[2019-10-25] MEDS ORDERED: IPRATROPIUM BROMIDE (0.02%) 0.5MG/2.5ML NEB HHN STA (17:59)
[2019-10-25] MEDS ORDERED: ALBUTEROL (0.083%) 2.5MG/3ML NEB HHN STA (17:59)
[2019-10-25] MEDS ORDERED: ALBUTEROL (0.083%) 2.5MG/3ML NEB ONE (18:18)
[2019-10-25 20:04] LABS: HEMATOCRIT. 35.9 % (42.0-52.0); MEAN CORPUSCULAR HEMOGLOBIN 32.8 pg (28.0-32.0); MEAN CORPUSCULAR VOLUME 98.4 fL (80.0-94.0); MEAN PLATELET VOLUME 7.9 fl (7.4-10.4); PLATELET 267 x1000/uL (130-400); RED BLOOD CELL COUNT 3.65 mill/uL (4.7-6.1); RED CELL DISTRIBUTION WIDTH 13.4 % (11.6-14.6)
[2019-10-25 20:09] LABS: CHLORIDE 109 mEq/L (98-107)
[2019-10-25 20:47] VITALS: BP 166/78
[2019-10-25 21:18] LABS: PLATELET ESTIMATE NORMAL
== END 2019-10-25 22:25 | disposition home or self-care (01) ==
LOC: ER 16:51
DX: J44.1 Chronic obstructive pulmonary disease with (acute) exacerbation (principal); I10 Essential (primary) hypertension; E11.9 Type 2 diabetes mellitus without complications; Z79.899 Other long term (current) drug therapy; Z91.018 Allergy to other foods
CPT/HCPCS: 36415; 71045; 80053; 85025; 93005; 94640; 99285

== ENCOUNTER 2019-11-01 06:18 | Inpatient (IN) | payer MEDICARE, MEDICAID ==
[~2019-11-01] VITALS: Ht 177.8 cm; Wt 72.6 kg
[2019-11-01] MEDS ORDERED: AZITHROMYCIN 500 MG in DEXT 5% WATER 250 ML IV STA (06:25)
[2019-11-01] MEDS ORDERED: ALBUTEROL 6.7GM HFA INHALER ORI ONE (06:30)
[2019-11-01] MEDS ORDERED: MAGNESIUM 2 G PREMIX 50 ML IV ONE (06:30)
[2019-11-01] MEDS ORDERED: DEXAMETHASONE 10 MG/ML VIAL IV ONE (06:30)
[2019-11-01] MEDS: FUROSEMIDE 20MG/2ML VIAL IVP ONE ×2 (06:50→08:06)
[2019-11-01 07:11] LABS: CHLORIDE 111 mEq/L (98-107)
[2019-11-01 07:16] LABS: ETHANOL BLOOD < 10 mg/dL
[2019-11-01 07:19] LABS: CREATINE KINASE 100 IU/L (39-308)
[2019-11-01 07:23] LABS: D-DIMER 1.15 mg/L FEU (<0.50); PROTHROMBIN TIME 10.2 sec (9.6-11.0)
[2019-11-01 07:24] LABS: BASOPHILS % 0.1 % (0.0-2.0); EOSINOPHILS % 0.6 % (0.0-5.0); HEMATOCRIT. 34.8 % (42.0-52.0); HEMOGLOBIN. 11.5 g/dL (14.0-18.0); LYMPHOCYTES % 9.9 % (20.0-50.0); MEAN CORPUSCULAR HEMOGLOBIN 32.6 pg (28.0-32.0); MEAN PLATELET VOLUME 7.6 fl (7.4-10.4); MONOCYTES % 4.7 % (2.0-8.0); NEUTROPHILS % 84.7 % (40.0-76.0); PLATELET 234 x1000/uL (130-400); RED BLOOD CELL COUNT 3.52 mill/uL (4.7-6.1); RED CELL DISTRIBUTION WIDTH 13.4 % (11.6-14.6)
[2019-11-01 07:41] LABS: CLARITY URINE CLEAR (CLEAR); COLOR URINE YELLOW (YELLOW); KETONES URINE NEGATIVE (NEGATIVE); LEUKOCYTE ESTERASE URINE NEGATIVE (NEGATIVE); NITRITE URINE NEGATIVE (NEGATIVE); OCCULT BLOOD URINE TRACE (NEGATIVE); PH URINE 5.5 (4.5-8.0); PROTEIN URINE 3+ (NEGATIVE); SPECIFIC GRAVITY URINE 1.014 (1.005-1.030); UROBILINOGEN URINE 0.2 E.U./dL (0.2-1.0)
[2019-11-01 07:43] LABS: *BARBITURATES SCREEN URINE NEGATIVE (NEGATIVE); *BENZODIAZEPINES SCREEN URINE NEGATIVE (NEGATIVE)
[2019-11-01 07:44] LABS: *AMPHETAMINES SCREEN URINE NEGATIVE (NEGATIVE); *COCAINE SCREEN URINE NEGATIVE (NEGATIVE); CANNABINOID URINE SCREEN NEGATIVE (NEGATIVE); METHADONE URINE SCREEN NEGATIVE (NEGATIVE); OPIATES URINE SCREEN NEGATIVE (NEGATIVE); PHENCYCLIDINE URINE SCREEN NEGATIVE (NEGATIVE)
[2019-11-01 08:30] VITALS: BP 137/73
[2019-11-01] MEDS ORDERED: DEXTROSE 50% WATER 50ML SYRINGE IV PRN (10:30)
[2019-11-01 12:00] VITALS: BP 139/70
[2019-11-01] MEDS ORDERED: FUROSEMIDE 40MG/4ML VIAL IVP NR (12:00)
[2019-11-01] MEDS: BLOOD SUGAR DIAGNOSTIC STRIP TEST SCH ×4 (12:08→21:13)
[2019-11-01] MEDS: ENOXAPARIN 40MG/0.4ML SYR SUBCUT SCH (12:36)
[2019-11-01] MEDS: INSULIN LISPRO 100 UNITS/ML SUBCUT SCH ×3 (12:37→21:29)
[2019-11-01 16:00] VITALS: BP 149/78
[2019-11-01 20:00] VITALS: BP 146/85
[2019-11-01] MEDS ORDERED: TERBUTALINE SULFATE 1MG/ML VIAL SUBCUT NR (20:30)
[2019-11-01] MEDS ORDERED: ALBUTEROL 6.7GM HFA INHALER ORI SCH (20:30)
[2019-11-01] MEDS: METHYLPREDNISOLONE SOD SUCC 40 MG/ML VIAL IV SCH (21:25)
[2019-11-01] MEDS: FAMOTIDINE 20MG TABLET PO SCH (21:26)
[2019-11-01] MEDS: GUAIFENESIN 600MG ER TABLET PO SCH (21:26)
[2019-11-01] MEDS: RISPERIDONE 1MG TABLET PO SCH (21:26)
[2019-11-01] MEDS ORDERED: ALBUTEROL (0.083%) 2.5MG/3ML NEB HHN SCH (22:00)
[2019-11-02 04:00] VITALS: BP 159/109
[2019-11-02] MEDS: METHYLPREDNISOLONE SOD SUCC 40 MG/ML VIAL IV SCH ×3 (05:37→21:08)
[2019-11-02] MEDS: BLOOD SUGAR DIAGNOSTIC STRIP TEST SCH ×4 (06:44→21:09)
[2019-11-02 06:55] LABS: CHLORIDE 103 mEq/L (98-107); HEMATOCRIT. 33.4 % (42.0-52.0); HEMOGLOBIN. 11.3 g/dL (14.0-18.0); MEAN CORPUSCULAR HEMOGLOBIN 32.7 pg (28.0-32.0); MEAN CORPUSCULAR VOLUME 96.3 fL (80.0-94.0); PLATELET 210 x1000/uL (130-400); RED BLOOD CELL COUNT 3.47 mill/uL (4.7-6.1)
[2019-11-02 08:09] VITALS: BP 112/69
[2019-11-02] MEDS: INSULIN LISPRO 100 UNITS/ML SUBCUT SCH ×4 (08:16→22:09)
[2019-11-02] MEDS: FAMOTIDINE 20MG TABLET PO SCH ×2 (08:58→21:08)
[2019-11-02] MEDS: ENOXAPARIN 40MG/0.4ML SYR SUBCUT SCH (08:59)
[2019-11-02] MEDS: GUAIFENESIN 600MG ER TABLET PO SCH ×2 (08:59→21:08)
[2019-11-02 09:00] LABS: T4 FREE 1.03 ng/dL (0.76-1.46)
[2019-11-02] MEDS ORDERED: REGADENOSON 0.4 MG/5 ML IV ONE (10:00)
[2019-11-02] MEDS ORDERED: AZITHROMYCIN 500 MG in DEXT 5% WATER 250 ML IV SCH (10:30)
[2019-11-02] MEDS: AZITHROMYCIN 250 MG in DEXT 5% WATER 250 ML IV SCH (10:41)
[2019-11-02] MEDS: IPRATROPIUM/ALBUTEROL 0.5-3(2.5)MG/3ML NEB HHN SCH (12:13)
[2019-11-02 12:16] VITALS: BP 151/75
[2019-11-02 12:31] LABS: PLATELET ESTIMATE NORMAL
[2019-11-02] MEDS ORDERED: IPRATROPIUM/ALBUTEROL 0.5-3(2.5)MG/3ML NEB HHN PRN (15:15)
[2019-11-02 16:15] LABS: CREATINE KINASE 108 IU/L (39-308)
[2019-11-02 16:17] LABS: CREATINE KINASE MB FRACTION 5.1 ng/mL (0.5-3.6)
[2019-11-02 16:18] VITALS: BP 158/77
[2019-11-02 20:00] VITALS: BP 161/80
[2019-11-02] MEDS: RISPERIDONE 1MG TABLET PO SCH (21:08)
[2019-11-02 23:28] LABS: CREATINE KINASE 98 IU/L (39-308)
[2019-11-02 23:29] LABS: CREATINE KINASE MB FRACTION 4.6 ng/mL (0.5-3.6)
[2019-11-03] VITALS (7 sets, daily range): BP systolic 128–166; BP diastolic 64–84
[2019-11-03] MEDS: METHYLPREDNISOLONE SOD SUCC 40 MG/ML VIAL IV SCH ×2 (05:51→18:17)
[2019-11-03] MEDS: BLOOD SUGAR DIAGNOSTIC STRIP TEST SCH ×4 (06:35→21:25)
[2019-11-03 07:04] LABS: CREATINE KINASE 77 IU/L (39-308)
[2019-11-03 07:05] LABS: CREATINE KINASE MB FRACTION 4.3 ng/mL (0.5-3.6)
[2019-11-03] MEDS: INSULIN LISPRO 100 UNITS/ML SUBCUT SCH ×3 (07:50→17:50)
[2019-11-03] MEDS: IPRATROPIUM/ALBUTEROL 0.5-3(2.5)MG/3ML NEB HHN SCH ×3 (08:29→21:16)
[2019-11-03] MEDS: ENOXAPARIN 40MG/0.4ML SYR SUBCUT SCH (08:50)
[2019-11-03] MEDS: AZITHROMYCIN 250 MG in DEXT 5% WATER 250 ML IV SCH (10:57)
[2019-11-03] MEDS ORDERED: REGADENOSON 0.4 MG/5 ML IV ONE (13:00)
[2019-11-03] MEDS: GUAIFENESIN 600MG ER TABLET PO SCH (14:27)
[2019-11-03] MEDS: FAMOTIDINE 20MG TABLET PO SCH (14:27)
[2019-11-03 15:44] LABS: BG BASE EXCESS 0.7 mmol/L (-2.0-2.0); BG CARBOXYHEMOGLOBIN 0.8 % (0.5-1.5); BG DEOXYHEMOGLOBIN 5.9 % (0.0-5.0); BG FRACTION INSPIRED OXYGEN 21; BG HCO3 ACT 24.7 mmol/L (22.0-26.0); BG METHEMOGLOBIN 0.6 % (0.0-1.5); BG OXYHEMOGLOBIN 92.7 % (94.0-97.0); BG PCO2 37.4 mmHg (35.0-45.0); BG PH 7.437 (7.350-7.450); BG PO2 72.5 mmHg (75.0-100.0); BG SAMPLE SITE LEFT RADIAL; BG TOTAL HEMOGLOBIN 13.7 g/dL (12.0-18.0); BG VENT MODE ROOM AIR
== END 2019-11-03 22:10 | disposition home or self-care (01) | DRG 189 ==
LOC: ER 06:18 → 7WST 06:43 → ENRESERV 07:37 → 6WST 23:20
PROVIDERS: ADMIT Internal Medicine; ATTEND Internal Medicine
DX: J96.01 Acute respiratory failure with hypoxia (principal); I50.23 Acute on chronic systolic (congestive) heart failure; J44.1 Chronic obstructive pulmonary disease with (acute) exacerbation; E87.2 Acidosis; R65.10 Systemic inflammatory response syndrome (SIRS) of non-infectious origin without acute organ dysfunction; I11.0 Hypertensive heart disease with heart failure; D49.0 Neoplasm of unspecified behavior of digestive system; E78.5 Hyperlipidemia, unspecified; M10.9 Gout, unspecified; R13.10 Dysphagia, unspecified; E11.65 Type 2 diabetes mellitus with hyperglycemia; E11.51 Type 2 diabetes mellitus with diabetic peripheral angiopathy without gangrene; B37.9 Candidiasis, unspecified; F10.20 Alcohol dependence, uncomplicated; F20.9 Schizophrenia, unspecified; Z20.828 Contact with and (suspected) exposure to other viral communicable diseases; Z60.2 Problems related to living alone; K74.60 Unspecified cirrhosis of liver; Z83.3 Family history of diabetes mellitus; Z87.891 Personal history of nicotine dependence; Z86.73 Personal history of transient ischemic attack (TIA), and cerebral infarction without residual deficits; Z99.81 Dependence on supplemental oxygen; Z79.899 Other long term (current) drug therapy; Z91.018 Allergy to other foods
CPT/HCPCS: 36415; 36600; 71045; 78452; 78580; 80048; 80053; 80061; 80305; 80320; 81003; 82375; 82550; 82553; 82728; 82805; 82962; 83036; 83605; 83615; 83880; 84145; 84439; 84443; 84484; 85025; 85379; 85384; 86140; 87804; 93005; 93017; 93306; 93970; 94640; 99291; A9500; J0456; J1100; J1650; J1815; J1940; J2785; J2920; J3105; J3475; J7060; G0480; U0003-CS